=== PATIENT | female | born 1950 | race Caucasian/White ===

== ENCOUNTER 2023-02-05 08:46 | Day surgery (SDC) | payer MEDICARE, OTHER ==
[~2023-02-05] VITALS: Ht 154.9 cm; Wt 60.1 kg
[2023-02-05] VITALS (13 sets, daily range): BP systolic 124–141; BP diastolic 66–101
[~2023-02-05 08:46] MED LIST: AMIO200T67 PO; APIX5TAB3 PO; ASPI-611 PO; ATOR40TA72 PO; ESCI-8 PO; FLUT16SP26 BOTHNARES; GABA800T11 PO; ISOS30TA84 PO; METO-395 PO; MULT-1219 PO; NIFE30TA95 PO; OMEP40CA21 PO; RAMI10CA69 PO
[2023-02-05] MEDS ORDERED: normal saline 1000ml 1,000 ML IV SCH (09:15)
[2023-02-05] MEDS ORDERED: fentaNYL/PF 50MCG/1 ML 2ML syringe IV ONE (09:15)
[2023-02-05] MEDS ORDERED: MIDAZolam 1mg/ml 10ml vial IV ONE (09:15)
[2023-02-05] MEDS ORDERED: NITR0.4T51 SL (09:40)
[2023-02-05] MEDS ORDERED: CHOL500049 PO (09:40)
[2023-02-05 09:41] LABS: BASOPHILS % (AUTO) 0.6 % (0-1); EOSINOPHILS % (AUTO) 1.2 % (0-6); HEMATOCRIT 43.7 % (35.0-45.0); HEMOGLOBIN 14.8 g/dl (12.0-16.0); LYMPHOCYTES # (AUTO) 0.9 X10'3 (1.1-4.8); LYMPHOCYTES % (AUTO) 22.1 % (21-51); MEAN CORPUSCULAR HEMOGLOBIN 32.5 PG (27.0-31.0); MEAN CORPUSCULAR HGB CONC 33.8 g/dL (33.0-36.5); MEAN CORPUSCULAR VOLUME 96.2 FL (78-98); MEAN PLATELET VOLUME 7.2 FL (7.4-10.4); MONOCYTES # (AUTO) 0.4 X10'3 (0-0.9); MONOCYTES % (AUTO) 11.2 % (2-12); NEUTROPHILS # (AUTO) 2.6 X10'3 (1.8-7.7); NEUTROPHILS % (AUTO) 64.9 % (42-75); PLATELET COUNT 207 X10'3 (140-440); RED BLOOD COUNT 4.54 X10'6 (4.20-5.60); RED CELL DISTRIBUTION WIDTH 13.9 % (11.5-14.5); WHITE BLOOD COUNT 3.9 X10'3 (4.5-11.0)
[2023-02-05 09:49] LABS: ANION GAP 7 (8-16); BLOOD UREA NITROGEN 12 MG/DL (7-18); BUN/CREATININE RATIO 14.8 (10.0-20.0); CHLORIDE 105 MMOL/L (99-107); CREATININE 0.81 MG/DL (0.40-0.90); GLUCOSE 98 MG/DL (70-104); MAGNESIUM 2.3 MG/DL (1.5-2.4); POTASSIUM 4.3 MMOL/L (3.5-5.1); SODIUM 141 MMOL/L (135-145); eGFR 69 ML/MIN
[2023-02-05] MEDS ORDERED: atropine 1 MG/1 ML vial IV ONE (12:30)
[2023-02-05] MEDS ORDERED: atropine 0.1mg/ml 10ml syringe ONE (12:30)
== END 2023-02-05 13:35 | disposition home or self-care (01) ==
LOC: SSTAY O 08:46
PROVIDERS: ATTEND Internal Medicine Cardiovascular Disease
DX: I48.19 Other persistent atrial fibrillation (principal); I10 Essential (primary) hypertension; E78.5 Hyperlipidemia, unspecified; I47.1 Supraventricular tachycardia; K21.9 Gastro-esophageal reflux disease without esophagitis; Z79.82 Long term (current) use of aspirin; Z79.899 Other long term (current) drug therapy; Z98.890 Other specified postprocedural states
CPT/HCPCS: 36415; 80048; 83735; 85025; 85610; 92960; 93005; J0461; J2250; J3010; J7030; A4620

== ENCOUNTER 2023-03-26 09:17 | Day surgery (SDC) | payer MEDICARE, OTHER ==
[2023-03-26] VITALS (8 sets, daily range): BP systolic 130–152; BP diastolic 67–91
[~2023-03-26] VITALS: Ht 154.9 cm; Wt 59.5 kg
[~2023-03-26 09:17] MED LIST changes: +CHOL500049 PO; +NITR0.4T51 SL
[2023-03-26] MEDS ORDERED: normal saline 1000ml 1,000 ML IV SCH (09:40)
[2023-03-26] MEDS ORDERED: vancomycin/NS 1 GM in NS 250 ML IV ONE (09:45)
[2023-03-26] MEDS ORDERED: cefazolin 2gm/D5W 100mL 100 ML IV ONE (09:45)
[2023-03-26 10:18] LABS: EOSINOPHILS # (AUTO) 0.1 X10'3 (0-0.9); EOSINOPHILS % (AUTO) 3.1 % (0-6); HEMATOCRIT 43.9 % (35.0-45.0); HEMOGLOBIN 14.7 g/dl (12.0-16.0); LYMPHOCYTES # (AUTO) 1.1 X10'3 (1.1-4.8); LYMPHOCYTES % (AUTO) 31.8 % (21-51); MEAN CORPUSCULAR HEMOGLOBIN 31.6 PG (27.0-31.0); MEAN CORPUSCULAR HGB CONC 33.5 g/dL (33.0-36.5); MEAN CORPUSCULAR VOLUME 94.2 FL (78-98); MEAN PLATELET VOLUME 7.4 FL (7.4-10.4); MONOCYTES # (AUTO) 0.4 X10'3 (0-0.9); MONOCYTES % (AUTO) 10.6 % (2-12); NEUTROPHILS # (AUTO) 1.9 X10'3 (1.8-7.7); NEUTROPHILS % (AUTO) 53.5 % (42-75); PLATELET COUNT 202 X10'3 (140-440); RED BLOOD COUNT 4.66 X10'6 (4.20-5.60); RED CELL DISTRIBUTION WIDTH 14.7 % (11.5-14.5); WHITE BLOOD COUNT 3.5 X10'3 (4.5-11.0)
[2023-03-26 10:30] LABS: ALBUMIN 4.3 G/DL (3.4-5.0); ANION GAP 7 (8-16); BLOOD UREA NITROGEN 10 MG/DL (7-18); BUN/CREATININE RATIO 14.5 (10.0-20.0); CALCIUM 9.2 MG/DL (8.5-10.1); CHLORIDE 105 MMOL/L (99-107); CREATININE 0.69 MG/DL (0.40-0.90); GLUCOSE 99 MG/DL (70-104); MAGNESIUM 2.4 MG/DL (1.5-2.4); POTASSIUM 3.7 MMOL/L (3.5-5.1); SODIUM 140 MMOL/L (135-145); TOTAL CARBON DIOXIDE 28.4 MMOL/L (24-32); eGFR 83 ML/MIN
[2023-03-26] MEDS ORDERED: vancomycin 1,000mg inj ONE (10:50)
[2023-03-26] MEDS ORDERED: LIDOCAINE 2%/EPI 1:100,000 inj. Multi-dose 20 ML VIAL ONE (10:50)
[2023-03-26] MEDS ORDERED: midazolam 1 mg/ML 2ml injection ONE ×3 (13:23→14:30)
[2023-03-26] MEDS ORDERED: fentaNYL/PF 50MCG/1 ML 2ML syringe ONE (13:23)
== END 2023-03-26 17:30 | disposition home or self-care (01) ==
LOC: SSTAY O 09:17
PROVIDERS: ATTEND Internal Medicine Cardiovascular Disease
DX: I49.5 Sick sinus syndrome (principal); I48.19 Other persistent atrial fibrillation; I25.111 Atherosclerotic heart disease of native coronary artery with angina pectoris with documented spasm; I25.82 Chronic total occlusion of coronary artery; I47.1 Supraventricular tachycardia; I10 Essential (primary) hypertension; I08.3 Combined rheumatic disorders of mitral, aortic and tricuspid valves; E78.5 Hyperlipidemia, unspecified; K21.9 Gastro-esophageal reflux disease without esophagitis; Q21.0 Ventricular septal defect; I45.10 Unspecified right bundle-branch block; M41.9 Scoliosis, unspecified; Z98.890 Other specified postprocedural states; Z87.891 Personal history of nicotine dependence; Z72.89 Other problems related to lifestyle; Z88.8 Allergy status to other drugs, medicaments and biological substances; Z79.899 Other long term (current) drug therapy; Z79.82 Long term (current) use of aspirin; Z82.49 Family history of ischemic heart disease and other diseases of the circulatory system; Z80.1 Family history of malignant neoplasm of trachea, bronchus and lung
CPT/HCPCS: 33208; 36415; 71045; 80048; 83735; 85025; 85610; 93005; 99152; 99153; C1785; C1898; J2250; J3010; J3370; J7030; 10060

== ENCOUNTER 2023-08-27 10:07 | Outpatient (CLI) | payer MEDICARE, OTHER ==
[~2023-08-27 10:07] MED LIST changes: -METO-395 PO; +NIFE-72 PO; -NIFE30TA95 PO
== END 2023-08-27 23:59 | disposition home or self-care (01) ==
LOC: RT 10:07
PROVIDERS: ATTEND Physician Assistant
DX: Z79.899 Other long term (current) drug therapy (principal)
CPT/HCPCS: 94010; 94729

== ENCOUNTER 2024-06-15 08:37 | Outpatient (CLI) | payer MEDICARE, OTHER ==
[~2024-06-15 08:37] MED LIST changes: -RAMI10CA69 PO; +RAMI10CA78 PO
[2024-06-15 09:39] VITALS: PULSE 64; RESP 16; O2SAT 98
== END 2024-06-15 23:59 | disposition home or self-care (01) ==
LOC: RT 08:37
PROVIDERS: ATTEND Physician Assistant
DX: R06.02 Shortness of breath (principal)
CPT/HCPCS: 94010; 94760

== ENCOUNTER 2024-11-03 08:19 | Day surgery (SDC) | payer MEDICARE, OTHER ==
[~2024-11-03] VITALS: Ht 154.9 cm; Wt 63.5 kg
[2024-11-03] VITALS (11 sets, daily range): BP systolic 121–146; BP diastolic 78–109; PULSE 44–90; RESP 12–18; TEMP 98.1; O2SAT 97–100
[~2024-11-03 08:19] MED LIST changes: +GABA-1555 PO; -GABA800T11 PO
[2024-11-03] MEDS ORDERED: AMI200T (09:27)
[2024-11-03] MEDS ORDERED: POTA-206 PO (09:27)
[2024-11-03] MEDS ORDERED: FURO20TA4 PO (09:27)
[2024-11-03] MEDS ORDERED: APIX5TAB3 PO (09:27)
[2024-11-03] MEDS ORDERED: DILT-35 PO (09:27)
[2024-11-03] MEDS ORDERED: TIZA-205 PO (09:27)
[2024-11-03 09:28] LABS: PROTHROMBIN TIME 10.9 SECONDS (9.0-12.0)
[2024-11-03 09:34] LABS: ALBUMIN 3.4 G/DL (3.4-5.0); BLOOD UREA NITROGEN 14 MG/DL (7-18); BUN/CREATININE RATIO 14.7 (10.0-20.0); CALCIUM 9.1 MG/DL (8.5-10.1); CREATININE 0.95 MG/DL (0.40-0.90); GLUCOSE 90 MG/DL (70-104); MAGNESIUM 2.3 MG/DL (1.5-2.4); TOTAL CARBON DIOXIDE 28.2 MMOL/L (24-32); eCRCL 39 ML/MIN; eGFR 57 ML/MIN
[2024-11-03 09:39] LABS: BASOPHILS % (AUTO) 0.8 % (0-1); EOSINOPHILS # (AUTO) 0.1 X10'3 (0-0.9); EOSINOPHILS % (AUTO) 1.2 % (0-6); HEMATOCRIT 42.7 % (35.0-45.0); HEMOGLOBIN 14.3 g/dl (12.0-16.0); LYMPHOCYTES % (AUTO) 19.7 % (21-51); MEAN CORPUSCULAR HEMOGLOBIN 32.2 PG (27.0-31.0); MEAN CORPUSCULAR HGB CONC 33.6 g/dL (33.0-36.5); MEAN CORPUSCULAR VOLUME 95.9 FL (78-98); MEAN PLATELET VOLUME 7.3 FL (7.4-10.4); MONOCYTES # (AUTO) 0.4 X10'3 (0-0.9); MONOCYTES % (AUTO) 8.3 % (2-12); NEUTROPHILS # (AUTO) 3.6 X10'3 (1.8-7.7); PLATELET COUNT 212 X10'3 (140-440); RED BLOOD COUNT 4.45 X10'6 (4.20-5.60); WHITE BLOOD COUNT 5.1 X10'3 (4.5-11.0)
[2024-11-03 09:48] LABS: ANION GAP 9 (8-16); CHLORIDE 105 MMOL/L (99-107); POTASSIUM 4.1 MMOL/L (3.5-5.1); SODIUM 142 MMOL/L (135-145)
[2024-11-03] MEDS: MIDAZolam 1mg/ml 10ml vial IV ONE (11:35)
[2024-11-03] MEDS: fentaNYL/PF 50MCG/1 ML 2ML syringe IV ONE (11:35)
[2024-11-03] MEDS: normal saline 1000ml 1,000 ML IV SCH (11:35)
== END 2024-11-03 12:53 | disposition home or self-care (01) ==
LOC: SSTAY O 08:19
PROVIDERS: ATTEND Internal Medicine Cardiovascular Disease
DX: I48.19 Other persistent atrial fibrillation (principal); I45.10 Unspecified right bundle-branch block; I10 Essential (primary) hypertension; I25.111 Atherosclerotic heart disease of native coronary artery with angina pectoris with documented spasm; E78.5 Hyperlipidemia, unspecified; K21.9 Gastro-esophageal reflux disease without esophagitis; I47.10 Supraventricular tachycardia, unspecified; I49.5 Sick sinus syndrome; I08.3 Combined rheumatic disorders of mitral, aortic and tricuspid valves; Z79.01 Long term (current) use of anticoagulants; Z79.82 Long term (current) use of aspirin; Z79.899 Other long term (current) drug therapy; Z95.0 Presence of cardiac pacemaker
CPT/HCPCS: 36415; 80048; 83735; 85025; 85610; 92960; 93005; J2250; J3010; J7030